=== PATIENT | male | born 1980 | race African-American/Black ===

== ENCOUNTER 2020-02-05 20:24 | Emergency (ER) | payer MEDICAID ==
[~2020-02-05] VITALS: Ht 182.9 cm; Wt 112.0 kg
[2020-02-05 20:37] VITALS: Ht 182.9 cm; Wt 112.0 kg
[2020-02-05 21:32] VITALS: BP 122/82
== END 2020-02-05 21:32 | disposition home or self-care (01) ==
LOC: ED 20:24
DX: I82.432 Acute embolism and thrombosis of left popliteal vein (principal); M54.5 Low back pain